=== PATIENT | female | born 1975 | race Caucasian/White ===

== ENCOUNTER 2019-08-30 10:00 | Inpatient (IN) | payer OTHER ==
[2019-08-30] VITALS (8 sets, daily range): BP systolic 80–128; BP diastolic 57–84
[~2019-08-30] VITALS: Ht 160 cm; Wt 61.4 kg
[~2019-08-30 10:00] MED LIST: VICODIN 500 MG-1 TAB PO
[2019-08-30 11:10] LABS: BASO % 0.3 % (0.0-1.0); EOS # 0.3 10*3/uL (0.0-0.4); EOS % 3.1 % (1.0-4.0); HEMATOCRIT 33.9 % (37.0-47.0); HEMOGLOBIN 10.9 g/dl (12.0-16.0); LYMPH # 1.8 10*3/uL (1.3-4.4); LYMPH % 18.6 % (27.0-41.0); MEAN CELL VOLUME 94.7 fl (81.0-99.0); MEAN CORPUSCULAR HGB 30.4 pg (27.0-31.0); MEAN CORPUSCULAR HGB CONC 32.2 g/dl (33.0-37.0); MEAN PLATELET VOLUME 8.3 fl (9.6-12.3); MONO # 1.1 10*3/uL (0.1-1.0); MONO % 11.5 % (3.0-9.0); NEUT # 6.5 10*3/uL (2.3-7.9); NEUT % 65.9 % (47.0-73.0); PLATELET COUNT AUTOMATED 453 10*3/uL (130-400); RED BLOOD COUNT 3.58 10*6/uL (4.10-5.10); RED CELL DISTRI WIDTH 13.3 % (0-14.5); WHITE BLOOD COUNT 9.9 10*3/uL (4.8-10.8)
[2019-08-30 11:25] LABS: ALBUMIN 2.6 gm/dl (3.1-4.5); ALKALINE PHOSPHATASE 73 U/L (45-117); BUN 7 mg/dl (7-24); CHLORIDE 101 mmol/L (98-107); CREATININE 0.69 mg/dL (0.55-1.02); LIPASE 84 U/L (73-393); POTASSIUM 3.8 mmol/L (3.5-5.1); SGOT/AST 8 IU/L (3-35); SGPT/ALT 7 U/L (12-78); SODIUM 134 mmol/L (136-145); TOTAL PROTEIN 7.7 gm/dL (6.4-8.2)
[2019-08-30 13:08] LABS: BILIRUBIN NEGATIVE (NEGATIVE); BLOOD NEGATIVE (NEGATIVE); CLARITY CLEAR (CLEAR); COLOR YELLOW (YELLOW); GLUCOSE NEGATIVE (NEGATIVE); KETONE NEGATIVE (NEGATIVE); LEUKO ESTERASE NEGATIVE (NEGATIVE); NITRITE NEGATIVE (NEGATIVE); SPECIFIC GRAVITY <= 1.005 (1.005-1.030); UROBILINOGEN 0.2 E.U./dl (0.2-1.0)
--- NOTE | 2019-08-30 14:02 | NUR ---
PT IS LAYING IN BED ON HER CELLPHONE. SHE IS MADE AWARE THAT SHE IS NPO FOR THE TIME BEING AND SHE LAST HAD SOMETHING TO EAT OR DRINK AT 0800 THIS MORNING SHE HAD A CUP OF COFFEE.
--- NOTE | 2019-08-30 16:54 | NUR ---
A 43, admitted to 5E, under the services of Dr. TIN ALVES,TERRA HAMILTON with a diagnosis of Abcess. Chief complaint is infection. Patient arrived via stretcher from ER. Monitor applied. Initial assessment completed. Vital signs taken and recorded. DR. TIN ALVES,TERRA HAMILTON notified of admission to the unit. Orders received. See assessment for past medical history, medications and allergies. Patient and/or family oriented to unit. [address] visitation policy reviewed. Clothing/patient valuable form completed. RADHA ROCHE
[2019-08-30] MEDS ORDERED: IBUPROFEN400 MG PO (17:08)
[2019-08-30] MEDS ORDERED: AUGMENTIN 500500 M1 PO (17:08)
--- NOTE | 2019-08-30 17:25 | NUR ---
Spoke with Dr. Garcia regarding patients request for pain medication and a diet order. Also notified physician that there is a significant amount of drainage from op site. Per physician apply an ABD pad and 6" stiven wrap for compression.
--- NOTE | 2019-08-30 19:19 | NUR ---
Spoke with Dr. Garcia regarding patients request for nicotine patch and something to help her sleep. See new orders.
--- NOTE | 2019-08-30 20:42 | NUR ---
PT INSTRUCTED ON USE OF IS. PT DEMONSATRATED PROPER TECHNIQUE. PT INSTRUCTED TO USE Q 1-2 HRS W/A.
[2019-08-31] VITALS: BP 123/69
[2019-08-31 08:00] VITALS: BP 112/58
[2019-08-31 12:00] VITALS: BP 106/56
[2019-08-31 16:00] VITALS: BP 128/89
[2019-08-31 20:00] VITALS: BP 123/67
--- NOTE | 2019-08-31 21:15 | NUR ---
IV started left wrist with #22 protective cath after 1 attempts. Site prepped with Chloroprep. Sterile dressing applied. Patient tolerated procedure well. GAYE LEVINE
[2019-09-01] VITALS: BP 126/68
[2019-09-01 08:00] VITALS: BP 115/76
--- NOTE | 2019-09-01 11:38 | NUR ---
Scheduled [place] given. Patient states the pain increases with movement. Patient was encouraged to ambulate frequently in the room. She was educated on (+) wound cultures and isolation. Patient rates pain 6/10.
[2019-09-01 12:00] VITALS: BP 124/70
--- NOTE | 2019-09-01 12:15 | NUR ---
[place] effective. Patient asleep with respirations >12.
--- NOTE | 2019-09-01 16:12 | NUR ---
Tried to contact Dr. Garcia for wound care orders. Physicians mailbox was full.
[2019-09-01 16:52] VITALS: BP 110/17
--- NOTE | 2019-09-01 16:57 | NUR ---
Scheduled Lottie given. Patient rates pain 6/10. She was up ambulating in room, she washed her hair and got cleaned up. Will monitor effectiveness of Lottie.
--- NOTE | 2019-09-01 16:58 | NUR ---
Scheduled [employer] given for sugical pain rated 6/10. Will monitor.
--- NOTE | 2019-09-01 17:00 | NUR ---
Dressing was changed due to moderate amount of sanguineous drainage. Packing was not changed due to order/patients refusal. She said "it hurts too bad!" Otherwise, patient is compliant and cooperative with care.
--- NOTE | 2019-09-01 17:45 | NUR ---
[facility] effective. Patient rates pain 6/10 but states "it comes and goes."
--- NOTE | 2019-09-01 18:39 | NUR ---
Patient is requesting stronger pain medication during wound packing. She states "I have a strong tolerance to pain, but when he did that, it brought tears to my eyes."
--- NOTE | 2019-09-01 19:00 | NUR ---
Dr. Garcia returned call. Patients current status was discussed, wound care orders, and pain management. See physicians new orders.
[2019-09-01 20:00] VITALS: BP 112/77
[2019-09-02] VITALS (10 sets, daily range): BP systolic 108–143; BP diastolic 62–79
--- NOTE | 2019-09-02 03:41 | NUR ---
24 HR chart check completed.
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
--- NOTE | 2019-09-02 09:00 | NUR ---
Scudding Inspector in to see patient. She is currently not in her room. Will follow up at a later time.
--- NOTE | 2019-09-02 09:57 | NUR ---
pt in surgery
--- NOTE | 2019-09-02 11:45 | NUR ---
RETURN FROM SURGERY
--- NOTE | 2019-09-02 11:57 | NUR ---
DR. MUNOZ NOTIFIED THAT NEW CONSULT FOR MEDICAL EVALUATION
--- NOTE | 2019-09-02 12:00 | NUR ---
Dynamo Repairer in to talk to patient. Patient states lives at home with her mother. There are 0 steps in the home. Physician: Tiffani Steinberg but looking for a new physician Pharmacy: [facility] Home health services: none Patient's level of ADLs: INDEPENDENT Patient has working utilities: yes DME: none Follow-up physician's appointment after d/c: will be made by the hospitalist nurse director upon discharge Does patient want to access PORTAL?: no Discharge plan discussed with patient. She normally moves around and lives with friends. When discharged from the hospital she will be going to stay with her mother. She is independent in her ADLs and ambulation. Discussed home health care services and she is unsure of her home needs at this time. When medically stable she will be discharged to home. Her mother will provide transportation on discharge. BERNARDA MCGOWAN
[2019-09-02 12:40] LABS: BASO % 0.2 % (0.0-1.0); EOS # 0.3 10*3/uL (0.0-0.4); EOS % 4.5 % (1.0-4.0); HEMATOCRIT 34.6 % (37.0-47.0); HEMOGLOBIN 10.9 g/dl (12.0-16.0); LYMPH # 1.4 10*3/uL (1.3-4.4); LYMPH % 24.9 % (27.0-41.0); MEAN CELL VOLUME 95.6 fl (81.0-99.0); MEAN CORPUSCULAR HGB 30.1 pg (27.0-31.0); MEAN CORPUSCULAR HGB CONC 31.5 g/dl (33.0-37.0); MEAN PLATELET VOLUME 8.1 fl (9.6-12.3); MONO # 0.3 10*3/uL (0.1-1.0); MONO % 5.4 % (3.0-9.0); NEUT # 3.7 10*3/uL (2.3-7.9); NEUT % 64.5 % (47.0-73.0); PLATELET COUNT AUTOMATED 480 10*3/uL (130-400); RED BLOOD COUNT 3.62 10*6/uL (4.10-5.10); RED CELL DISTRI WIDTH 13.2 % (0-14.5); WHITE BLOOD COUNT 5.7 10*3/uL (4.8-10.8)
[2019-09-02 12:56] LABS: ALBUMIN 2.5 gm/dl (3.1-4.5); ALKALINE PHOSPHATASE 76 U/L (45-117); BUN 4 mg/dl (7-24); CHLORIDE 106 mmol/L (98-107); CREATININE 0.62 mg/dL (0.55-1.02); POTASSIUM 3.5 mmol/L (3.5-5.1); SGOT/AST 7 IU/L (3-35); SGPT/ALT 11 U/L (12-78); SODIUM 138 mmol/L (136-145); TOTAL PROTEIN 7.3 gm/dL (6.4-8.2)
--- NOTE | 2019-09-02 13:53 | NUR ---
ID OFFICE NOTIFIED OF NEW CONSULT.
[2019-09-03] VITALS: BP 129/73
--- NOTE | 2019-09-03 00:12 | NUR ---
MEDICATED WITH NORCO FOR LEFT BREAST PAIN RATED A 6/10.
--- NOTE | 2019-09-03 04:00 | NUR ---
RESTING IN BED WITH EYES CLOSED; NORCO APPARENTLY EFFECTIVE.
--- NOTE | 2019-09-03 05:00 | NUR ---
SANTINO RN FROM [facility] CALLED IN TO INQUIRE TO PATIENT STATUS & TO INFORM ME THAT THERE WAS NO BED AVAILABLE YET FOR THE PATIENT. STATED THAT THEY WOULD CALL BACK LATER THIS MORNING.
--- NOTE | 2019-09-03 06:29 | NUR ---
RESTING IN BED WITH EYES CLOSED. RESPIRATIONS EASY & UNLABORED. CALL LIGHT WITHIN REACH.
[2019-09-03 08:00] VITALS: BP 125/70
--- NOTE | 2019-09-03 09:41 | NUR ---
SPOKE WITH DR. HURTADO ON THE FLOOR. SINCE PATIENT MAY HAVE SURGERY ONCE TRANSFERRED FOR FURTHER CARE, PT IS TO REMAIN NPO AND ORDER RECEIVED FOR MORPHINE FOR PAIN MANAGEMENT.
[2019-09-03 12:00] VITALS: BP 125/79
--- NOTE | 2019-09-03 15:48 | NUR ---
Discharge instructions reviewed with patient/family. Patient receptive and verbalizes understanding. PATIENT BEING TRANSFERRED TO [facility] FOR FURTHER CARE. Written instructions given TO PATIENT PATIENT BELONGINGD CHECKLIST REVIEWED AND COMPLETED BALAJI CLIFTON
--- NOTE | 2019-09-03 17:07 | NUR ---
PATIENT WAS TAKEN OFF THE FLOOR VIA STRETCHER BY [employer].
== END 2019-09-03 17:07 | disposition short-term general hospital (02) | DRG 364 ==
LOC: ED 10:00 → 5E 14:32 → EDHOLD 14:32 → 5E 14:58
PROVIDERS: Internal Medicine; Physician Assistant
PROC: 0J960ZZ Drainage of Chest Subcutaneous Tissue and Fascia, Open Approach (ICD-10-PCS; 2019-08-30)
PROC: 0H9U0ZZ Drainage of Left Breast, Open Approach (ICD-10-PCS; principal; 2019-09-02)
DX: N61.1 Abscess of the breast and nipple (principal); E43 Unspecified severe protein-calorie malnutrition; J86.9 Pyothorax without fistula; R00.1 Bradycardia, unspecified; D46.9 Myelodysplastic syndrome, unspecified; D47.3 Essential (hemorrhagic) thrombocythemia; S22.42XA Multiple fractures of ribs, left side, initial encounter for closed fracture; F17.210 Nicotine dependence, cigarettes, uncomplicated; B95.62 Methicillin resistant Staphylococcus aureus infection as the cause of diseases classified elsewhere; E87.1 Hypo-osmolality and hyponatremia; V29.9XXA Motorcycle rider (driver) (passenger) injured in unspecified traffic accident, initial encounter; Y93.55 Activity, bike riding; Y99.8 Other external cause status; Z71.6 Tobacco abuse counseling; Z83.3 Family history of diabetes mellitus; Y92.89 Other specified places as the place of occurrence of the external cause